=== PATIENT | male | born 1985 | race Caucasian/White ===

== ENCOUNTER 2025-02-25 14:32 | Emergency (ER) | payer OTHER ==
[~2025-02-25] VITALS: Ht 177.8 cm; Wt 142.5 kg
[2025-02-25] MEDS ORDERED: POTA10CA70 PO (14:57)
[2025-02-25] MEDS ORDERED: CARV6.25 PO (14:57)
[2025-02-25] MEDS ORDERED: FURO20TA2 PO (14:57)
[2025-02-25 18:01] VITALS: BP 157/93
[2025-02-25 18:01] LABS: VENOUS BASE EXCESS 0.2 (-2.0-2.0); VENOUS HCO3 26.0 MMOL/L (23.0-27.0); VENOUS O2 SATURATION 69.3 % (60.0-80.0); VENOUS PARTIAL PRESSURE CO2 46.5 mmHg (38.0-50.0); VENOUS PARTIAL PRESSURE O2 39.6 mmHg (30.0-50.0); VENOUS PH 7.365 UNITS (7.330-7.430); VENOUS STANDARD HCO3 24.0 MMOL/L; VENOUS TOTAL CO2 27.4 MMOL/L (24.0-28.0)
[2025-02-25] MEDS: FUROSEMIDE 100 MG/10 ML VIAL IV ONE ×2 (18:01→19:22)
[2025-02-25 18:07] LABS: BASO # 0.1 10^3/uL (0.0-0.2); BASO % 0.8 % (0.0-1.0); EOS # 0.2 10^3/uL (0.0-0.5); EOS % 2.6 % (0.0-3.0); LYMPH # 1.2 10^3/uL (1.5-5.0); LYMPH % 15.5 % (24.0-44.0); MONO # 0.8 10^3/uL (0.0-0.8); MONO % 10.5 % (2.0-8.0); NEUTROPHILS # 5.4 10^3/uL (1.5-8.5); NEUTROPHILS % 70.3 % (36.0-66.0); PLATELET COUNT, AUTOMATED 289 10^3/uL (150-450)
[2025-02-25] MEDS ORDERED: ISOVUE-370 76% 100 ML VIAL As Ordered ONE (18:30)
[2025-02-25 18:45] LABS: ALT/SGPT 13 U/L (7.0-40); AST/SGOT 25 U/L (<34); CALCIUM LEVEL 8.7 MG/DL (8.5-10.1); CARBON DIOXIDE LEVEL 26 MMOL/L (20-31); CHLORIDE LEVEL 102 MMOL/L (98-107); CK-MB VALUE MASS 2.6 NG/ML (<3.6); CREATININE FOR GFR 0.88 MG/DL (0.70-1.30); GLOMERULAR FILTRATION RATE > 90.0 (>60); POTASSIUM SERUM 3.9 MMOL/L (3.5-5.1); SODIUM LEVEL 140 MMOL/L (136-145)
[2025-02-25 18:45] LABS: KETONE, URINE AUTO RFX NEGATIVE (NEGATIVE); LEUKOCYTE ESTERASE UR AUTO RFX NEGATIVE (NEGATIVE); NITRITE, URINE AUTO RFX NEGATIVE (NEGATIVE); RBC, URINE AUTO RFX 0 /HPF (0-3); SQUAM EPITHELIAL CELL UR AURFX 0 /HPF (0-6); WBC, URINE AUTO RFX 0 /HPF (0-3)
[2025-02-25 18:46] LABS: THYROXINE (T4) 8.9 UG/DL (4.5-10.9)
[2025-02-25 18:47] LABS: ETHYL ALCOHOL (ETHANOL) 0.004 % (0.000-0.010)
[2025-02-25 18:49] LABS: CPK CREATINE PHOSPHOKINASE 60 U/L (46-171); MB/CK RELATIVE INDEX 4.33 (< OR =4)
[2025-02-25 18:51] LABS: INR 1.39
[2025-02-25 19:05] LABS: AMPHETAMINES LEVEL URINE NEGATIVE (NEGATIVE)
[2025-02-25 19:06] LABS: BARBITURATES URINE NEGATIVE (NEGATIVE); BENZODIAZEPINES URINE NEGATIVE (NEGATIVE); CANNABINOIDS URINE NEGATIVE (NEGATIVE); COCAINE METABOLITE URINE NEGATIVE (NEGATIVE); METHADONE URINE NEGATIVE (NEGATIVE); OPIATES URINE NEGATIVE (NEGATIVE); PHENCYCLIDINE URINE NEGATIVE (NEGATIVE)
[2025-02-25] MEDS ORDERED: HOME MED LIST COMPLETE! XX SCH (20:15)
[2025-02-25 20:37] LABS: CK-MB VALUE MASS 2.5 NG/ML (<3.6); CPK CREATINE PHOSPHOKINASE 70 U/L (46-171); MB/CK RELATIVE INDEX 3.57 (< OR =4)
[2025-02-26] MEDS ORDERED: PILL CUTTER 1 EACH XX PRN (01:40)
[2025-02-26 02:24] LABS: ESTIMATED AVERAGE GLUCOSE 108.0 MG/DL (60-110)
[2025-02-26 05:11] LABS: HEPATITIS C VIRUS ABY INDEX < 0.02 INDEX (<0.8)
[2025-02-26 05:15] LABS: CHOLESTEROL LEVEL 179 MG/DL (<200); CHOLESTEROL RISK RATIO 7.88 (<5); LDL CHOLESTEROL 133.3 MG/DL (<100); NON-HDL-C 156.3 MG/DL; TRIGLYCERIDES LEVEL 115 MG/DL (<150)
[2025-02-26 07:50] VITALS: BP 178/100; TEMP 99.1; O2SAT 96
[2025-02-26] MEDS ORDERED: ENOXAPARIN 40 MG/0.4 ML SYRINGE (J1650 PER 10MG) SC SCH (09:00)
[2025-02-26] MEDS ORDERED: LACTULOSE 20 GM/30 ML SYRUP UDC PO SCH (09:00)
[2025-02-26] MEDS ORDERED: PANTOPRAZOLE 40MG TAB PO SCH (09:00)
[2025-02-26] MEDS ORDERED: LOSARTAN 25 MG TAB PO SCH (09:00)
[2025-02-26] MEDS ORDERED: FUROSEMIDE 40 MG TAB PO SCH (09:00)
[2025-02-26] MEDS ORDERED: SPIRONOLACTONE 50 MG TAB PO SCH (09:00)
[2025-03-01 12:31] LABS: ALPHA 1 ANTITRYPSIN 187 mg/dL (83-199); CERULOPLASMIN 39.0 mg/dL (14-30)
[2025-03-01 12:48] LABS: ANTI SMITH(Sm) AB <1.0 NEG AI (<1.0 NEG)
[2025-03-02 15:41] LABS: IgG SERUM (part of Subclasses) 751 mg/dL (600-1640)
== END 2025-02-26 07:54 | disposition short-term general hospital (02) ==
LOC: M ED 14:32
DX: R18.8 Other ascites (principal); I11.9 Hypertensive heart disease without heart failure; K74.60 Unspecified cirrhosis of liver; R91.8 Other nonspecific abnormal finding of lung field; N20.0 Calculus of kidney; K40.20 Bilateral inguinal hernia, without obstruction or gangrene, not specified as recurrent
CPT/HCPCS: 70450; 71045; 71275; 74177; 80048; 80061; 80074; 80076; 80307; 81001; 82077; 82103; 82105; 82140; 82378; 82390; 82550; 82553; 82728; 82784; 82787; 82803; 83036; 83880; 84436; 84443; 84484; 85025; 85610; 86235; 86381; 93005; 93041; 94760; 96374; 96376; 99285; J1938; Q9967